=== PATIENT | male | born 1950 | race Caucasian/White ===

== ENCOUNTER → 2018-03-04 | Outpatient (CLI) | payer OTHER | END | disposition home or self-care (01) | LOC: PCVCCLINIC 11:00 | DX: I25.119 Atherosclerotic heart disease of native coronary artery with unspecified angina pectoris (principal); E78.5 Hyperlipidemia, unspecified; I10 Essential (primary) hypertension; R09.89 Other specified symptoms and signs involving the circulatory and respiratory systems; Z79.82 Long term (current) use of aspirin | CPT/HCPCS: 93005; G0463 ==

== ENCOUNTER → 2018-03-17 | Outpatient (CLI) | payer OTHER | END | disposition home or self-care (01) | LOC: PCVCIMAG 16:20 | DX: I65.23 Occlusion and stenosis of bilateral carotid arteries (principal); I25.10 Atherosclerotic heart disease of native coronary artery without angina pectoris; I25.2 Old myocardial infarction; Z95.5 Presence of coronary angioplasty implant and graft | CPT/HCPCS: 93325; 93351; 93880 ==

== ENCOUNTER → 2018-04-12 | Outpatient (CLI) | payer OTHER | END | disposition home or self-care (01) | LOC: PCVCCLINIC 14:16 | DX: I25.119 Atherosclerotic heart disease of native coronary artery with unspecified angina pectoris (principal); I25.2 Old myocardial infarction; I10 Essential (primary) hypertension; E78.5 Hyperlipidemia, unspecified | CPT/HCPCS: 36415 ==

== ENCOUNTER → 2018-04-19 | Outpatient (CLI) | payer OTHER ==
[~2018-04-19] MED LIST: DIAZEPAM 10 MG TABLET.; EPINEPHrine 1 MG/ML VIAL; IOHEXOL 300 MG/ML 100ML VIAL.; LIDOCAINE 1% Multi-Dose 50 ML VIAL.; MIDAZOLAM HCL/PF 2 MG/2 ML VIAL.; fentaNYL PF VIAL 100 MCG/2 ML VIAL
== END ==
LOC: PCVCINTER 07:57
DX: I65.21 Occlusion and stenosis of right carotid artery (principal); I70.1 Atherosclerosis of renal artery; I25.10 Atherosclerotic heart disease of native coronary artery without angina pectoris; I10 Essential (primary) hypertension; E78.5 Hyperlipidemia, unspecified; I25.2 Old myocardial infarction; Z95.5 Presence of coronary angioplasty implant and graft; Z79.82 Long term (current) use of aspirin
CPT/HCPCS: 36223; 36225; 36252; 75630; 76937; 99152; 99153; C1751; C1760; C1769; C1894; J0171; J1644; J2250; J3010; Q9967

== ENCOUNTER → 2018-09-13 | Outpatient (CLI) | payer OTHER ==
--- NOTE | 2018-09-13 10:39 | PCVCIMAG ---
APPROVED REPORT Indications Stenosis Risk Factors Hypertension: Doppler Spectral Velocity Analysis PSV / EDVPSV / EDV ECA (R) 111 / 6 cm/sECA (L) 84 / 10 cm/s dICA (R) 46 / 14 cm/sdICA (L) 72 / 19 cm/s Eulogio (R) 268 / 45 cm/smICA (L) 57 / 14 cm/s pICA (R) 261 / 57 cm/spICA (L) 59 / 15 cm/s Bulb (R) 51 / 9 cm/sBulb (L) 82 / 11 cm/s dCCA (R) 81 / 9 cm/sdCCA (L) 104 / 16 cm/s mCCA (R) 96 / 12 cm/smCCA (L) 97 / 15 cm/s Vert (R) 28 / 4 cm/sVert (L) 53 / 9 cm/s ICA/CCA 2.78ICA/CCA 0.79 Basic Measurements Blood Pressure: Pulses: Right Left RightLeft Brachial(Sitting) 140/62xvAg583/68mmHgTemporal Real Time B-Mode Imaging Vert. (R)AntegradeVert. (L)Antegrade Findings The right carotid bulb has moderately severe calcified plaque. The right proximal internal carotid artery shows 70-90% stenosis. The right common carotid artery shows no significant stenosis. The right external carotid artery shows no significant stenosis. The left carotid bulb has moderate plaque. The left proximal internal carotid artery shows <40% stenosis. The left common carotid artery shows <40% stenosis. The left external carotid artery shows no significant stenosis. Conclusion 1. Right internal carotid artery stenosis (70-90%) 2. Left common and internal carotid artery stenosis (<40%) 3. Antegrade vertebral flow March 2018 right ICA velocity of 268cm/sec corresponded to 60% stenosis by angiography No significant changes found.
== END | disposition home or self-care (01) ==
LOC: PCVCIMAG 11:51
PROVIDERS: ATTEND Internal Medicine
DX: I65.23 Occlusion and stenosis of bilateral carotid arteries (principal)
CPT/HCPCS: 93880

== ENCOUNTER → 2019-03-07 | Outpatient (CLI) | payer OTHER | END | disposition home or self-care (01) | LOC: PCVCCLINIC 10:31 | PROVIDERS: ATTEND Internal Medicine | DX: I25.10 Atherosclerotic heart disease of native coronary artery without angina pectoris (principal); E78.5 Hyperlipidemia, unspecified; I10 Essential (primary) hypertension; I65.23 Occlusion and stenosis of bilateral carotid arteries; J45.909 Unspecified asthma, uncomplicated; M19.90 Unspecified osteoarthritis, unspecified site | CPT/HCPCS: 36415; 80061; 93005; G0463 ==

== ENCOUNTER → 2019-09-08 | Outpatient (CLI) | payer OTHER ==
--- NOTE | 2019-09-08 10:29 | PCVCIMAG ---
APPROVED REPORT Indications Stenosis Risk Factors Hypertension: Hyperlipidemia Doppler Spectral Velocity Analysis PSV / EDVPSV / EDV ECA (R) 111 / 11 cm/sECA (L) 97 / 11 cm/s dICA (R) 188 / 40 cm/sdICA (L) 55 / 16 cm/s Eulogio (R) 359 / 65 cm/smICA (L) 76 / 20 cm/s pICA (R) 50 / 12 cm/spICA (L) 93 / 14 cm/s Bulb (R) 66 / 7 cm/sBulb (L) 82 / 17 cm/s dCCA (R) 81 / 9 cm/sdCCA (L) 107 / 18 cm/s mCCA (R) 110 / 14 cm/smCCA (L) 122 / 15 cm/s Vert (R) 39 / 8 cm/sVert (L) 47 / 9 cm/s ICA/CCA 4.43ICA/CCA 0.87 Basic Measurements Blood Pressure: Pulses: Right Left RightLeft Brachial(Sitting) 132/90fbZk386/76mmHgTemporal Real Time B-Mode Imaging Vert. (R)AntegradeVert. (L)Antegrade Findings The right carotid bulb has moderately severe calcified plaque. The right proximal internal carotid artery shows 80-90% stenosis. The right common carotid artery shows no significant stenosis. The right external carotid artery shows no significant stenosis. The left carotid bulb has moderate plaque. The left proximal internal carotid artery shows <40% stenosis. The left common carotid artery shows <40% stenosis. The left external carotid artery shows no significant stenosis. Conclusion 1. Right internal carotid artery stenosis (80-90%) 2. Left internal carotid artery stenosis (40%) 3. Antegrade vertebral flow. Angiography in March 2018 with a right internal carotid velocity of 268 cm/s correlated with a 60% stenosis. There appears to be progression of the right internal carotid artery disease with a current velocity of 359cm/sec
== END | disposition home or self-care (01) ==
LOC: PCVCIMAG 09:39
PROVIDERS: ATTEND Internal Medicine
DX: I65.23 Occlusion and stenosis of bilateral carotid arteries (principal); I25.10 Atherosclerotic heart disease of native coronary artery without angina pectoris; I10 Essential (primary) hypertension; E78.5 Hyperlipidemia, unspecified; J45.909 Unspecified asthma, uncomplicated; M10.9 Gout, unspecified; E03.9 Hypothyroidism, unspecified; M19.90 Unspecified osteoarthritis, unspecified site; Z72.89 Other problems related to lifestyle
CPT/HCPCS: 93880